=== PATIENT | female | born 1935 | race Caucasian/White ===

== ENCOUNTER → 2020-08-11 | Outpatient (CLI) | payer OTHER ==
[~2020-08-11] MED LIST: ALEVE220 MG PO; ASA81BEC PO; CALCIUM 600 +1 EA10 PO; DESVENLAFAXINE100 M3 PO; FISH OIL 1,0001 EAC9 PO; HYDROXYZINE PAM50 MG PO; LIPITOR40 MG PO; MIRALAX17 GM PO
[2020-08-11 11:05] LABS: APTT 23.8 Seconds (25.0-31.3); INR 0.9
--- NOTE | 2020-08-11 15:43 | EKG ---
[place] [address] ELECTROCARDIOGRAM REPORT Name: CURTIS FORD Room: [facility]#: [id number] Admission: 08/11/20 Attend Phys: Javi Meeks DO Discharge: Date of : 39 Date of Service: 08/11/20 1121 Report #: [id number] THIS REPORT FOR: //name// [facility] Test Date: 2020-08-11 Test Time: 11:21:32 Pat Name: CURTIS FORD Department: Room: Gender: F Clinical Project Assistant: : 1935 Requested By: Javi Meeks Order Number: [id number] Reading MD: Cornel Elmore Measurements Intervals [place] Rate: 78 P: 77 IN: 162 QRS: 34 QRSD: 86 T: 56 QT: 424 QTc: 484 Interpretive Statements Sinus rhythm Biatrial enlargement Anteroseptal infarct, age indeterminate No previous ECG available for comparison Electronically Signed On 08-11-2020 15:43:31 PROCEDURES TECH by Cornel Elmore [email or web address] <ELECTRONICALLY SIGNED> By: Marybel Elmore MD, [facility] 08/11/20 1543 112 112 Marybel Elmore MD, [facility] /EPI
== END ==
LOC: M.LAB → M.CRD 10:36 → M.LAB 14:56
PROVIDERS: ATTEND Orthopaedic Surgery
DX: Z01.812 Encounter for preprocedural laboratory examination (principal); Z20.828 Contact with and (suspected) exposure to other viral communicable diseases; M17.11 Unilateral primary osteoarthritis, right knee; I49.9 Cardiac arrhythmia, unspecified; I51.7 Cardiomegaly

== ENCOUNTER 2020-08-17 05:19 | Inpatient (IN) | payer OTHER ==
[~2020-08-17] VITALS: Ht 152.4 cm; Wt 62.1 kg
--- NOTE | ~2020-08-17 | OP ---
[address] [address] OPERATIVE REPORT Name: CURTIS FORD Room: [address]RAilin#: [id number] Admission: 08/17/20 Attend Phys: Richelle Friedman Discharge: Date of : 39 Report #: [id number] THIS REPORT FOR: //name// cc: Margy Choudhury MD, Sarah Beth MD ~ CC: Javi Montelongo DICTATED BY: Gabriel Villanueva DO DATE OF SERVICE: 08/17/2020 PREOPERATIVE DIAGNOSIS: Left knee degenerative joint disease. POSTOPERATIVE DIAGNOSIS: Left knee degenerative joint disease. PROCEDURE: Left total knee arthroplasty. IMPLANTS: Biomet Vanguard total knee system with the following components: 1. 62.5 femur. 2. 67 tibia. 3. 31 patella oval. 4. Two bags of Biomet cement. 5. Size 12 anterior stabilized tibial bearing. SURGEON: Javi Meeks DO SECOND ASSISTANTS: 1. Ludy Wagner PA-C. 2. Gabriel Villanueva DO ANESTHESIA: Spinal and local. FLUIDS: Crystalloid per Anesthesia. ESTIMATED BLOOD LOSS: 175 mL. DRAINS: None. SPECIMENS: None. COMPLICATIONS: None. CONDITION: Stable to PACU. [address] [address] OPERATIVE REPORT Name: CURTIS FORD Room: [address]#: [id number] Admission: 08/17/20 Attend Phys: Richelle Friedman Discharge: Date of : 39 Report #: [id number] DISPOSITION: Recovery in PACU and transfer to the floor. ANTIBIOTICS: 2 grams Ancef IV preop. TOURNIQUET: None. INDICATIONS FOR PROCEDURE: The patient is a very pleasant 84-year-old female who presented to our clinic with left knee pain. Clinical and radiographic findings were consistent with severe degenerative joint disease. She failed conservative managements and had symptoms that were significantly affecting her activities of daily living. We discussed total knee arthroplasty. The risks, benefits, alternatives and possible complications were discussed at length and she was agreeable to proceed. INTRAOPERATIVE FINDINGS: Upon capsulotomy, there was found to be severe tricompartmental degenerative changes, especially of the medial compartment with full thickness cartilage loss and [id number] articulation. Synovial fluid was otherwise normal. DESCRIPTION OF PROCEDURE: The patient was met in the preoperative area. The correct site was marked. She was transferred to the operative suite. She was given benefit of a spinal anesthetic by the anesthesia team. She was then placed supine on the operative table. She was secured to the table. The left lower extremity was then sterilely prepped and draped after we had applied a well-padded nonsterile tourniquet that was not used for the duration of the case. A timeout was performed to identify the correct patient, procedure and operative site. All in the room were in agreement. She received 2 grams of Ancef IV prior to the incision. She also got 1 gram of TXA prior to start as well. The procedure began with an anterior midline incision in standard fashion with sharp dissection carried down to the level of the capsule. A new knife was used to make a medial parapatellar arthrotomy in standard fashion. We then everted the patella and hyperflexed the knee. The fat pad was then debrided. We used the drill for access to the intramedullary canal of the femur. We then placed the intramedullary cutting guide placed in 5 degrees of valgus. The cutting block was pinned into place. The intramedullary darcie was then removed. We then made our distal femur cut in standard fashion. The distal femoral cutting block was then removed. We turned our attention to the proximal tibia where the extramedullary tibial guide was placed with 3 degrees of posterior slope that will pin. We measured 10 off the high lateral side using the depth stylus. The cutting block was then secured into place with pins. We then made the proximal tibial cut using Hohmann to protect our collateral ligaments. We then used a 10 spacer block to verify equal gaps in full extension. This was confirmed. We then used the AP sizer to size the femur to the appropriate size. The cutting block was then pinned into place and anterior, posterior and chamfer cuts were then made. We placed the trial tibia and secured this in place. We then applied the trial femur. We trialed a size 10 trial spacer, [place] [address] OPERATIVE REPORT Name: CURTIS FORD Room: [address] Cheryle Gay#: [id number] Admission: 08/17/20 Attend Phys: Richelle Friedman Discharge: Date of : 39 Report #: [id number] which was found to have good equal and balanced gaps with full extension and flexion. We then turned our attention to the patella which was cut in freehand fashion. This was sized to a size 31. The peg holes were then drilled. The trial patella poly was then placed and found to track well throughout range of motion. The trial patella and trial poly were removed. We used the drill to drill the femoral peg holes. The trial femur was then removed. We then used the guide for the reamer and punch for the tibia. All trial components were then removed. The bony ends were thoroughly irrigated. Cement was mixed on the back table and final components were thrown on to the back table. Cement was then placed on the backside of all final components as well as the bony ends. We first malleted the final tibia in place followed by the femur. The final patellar button was applied. We then trialed a size 12 poly, which had good range of motion, which was found to be full extension and flexion with good flexion and extension gaps which were balanced and equal. The trial was then removed and a final 12 anterior stabilized poly was placed. The locking bar was placed and secured with a palpable and audible click. All excess cement was removed. We injected a local pain cocktail throughout the capsule and periosteum. The wound was thoroughly irrigated. We then placed 1 gram of powdered vancomycin into the wound. The knee was then placed in 90 degrees of flexion and the capsule was closed with 0 Vicryl in pzkyoo-lh-xpbdi fashion followed by a running #1 Stratafix Quill suture. We then reapproximated the dermal tissue with 2-0 Monocryl suture in simple interrupted inverted fashion followed by running 3-0 Stratafix subcuticular with glue on the skin and a sterile Mepilex dressing. The patient tolerated the procedure well without any complications. All needle and sponge counts were correct x 2 at the end of the case. She was transferred to the PACU in stable condition. Dr. Meeks was present and scrubbed throughout all critical aspects of the case. By: 1933 DO adam Snider
[2020-08-17 13:40] VITALS: BP 165/80
[2020-08-17 21:18] VITALS: BP 119/62
[2020-08-17 22:30] VITALS: BP 135/61
--- NOTE | 2020-08-17 22:30 | NUR ---
ASSUMED CARE FROM PACU , PT ALERT ORIENTED X4 DATA BASE AND ASSESSMENT COMPLETED , BUPIVACAINE PUMP INTACT , PT CONTIUE TO RATE PAIN AT 7 , PO MEDICATION GIVEN. VSS , DISCUSSED POC, PT VERBALIZED UNDERSTANDING. LEFT KNEE FREE OF DRAINAGE OR ACTIVE BLEEDING.
[2020-08-18 00:08] VITALS: BP 133/69
[2020-08-18 04:36] LABS: HEMATOCRIT 37.4 % (37.0-47.0); HEMOGLOBIN 12.8 gm/dL (12.0-15.0)
[2020-08-18 07:30] VITALS: BP 141/83
[2020-08-18] MEDS ORDERED: ELIQUIS5 MG PO (10:46)
--- NOTE | 2020-08-18 12:47 | NUR ---
Pt is A&O. Resides at home alone. Normally active and independent. Pt has a walker and cane at home, does not normally use either. No home o2. No hx of HH or SNF. Goal is home at dc, Pt's dtr plans to stay with Pt at dc. CM faxed referral and dc orders to [facility] [phone], f:[phone]. [facility] to call in Pt's prescription for Eliquis. Plan dc home today post working with PT.
[2020-08-18 13:03] VITALS: BP 141/83
--- NOTE | 2020-08-18 14:05 | NUR ---
CM CALLED IN PRESCRIPTION EARLIER FOR ELIQUIS, WRITTEN,TO [facility] IN [place]. COPAY IS $12.32. PT.INFORMED.
[2020-08-18 15:00] VITALS: BP 141/83
--- NOTE | 2020-08-18 16:00 | NUR ---
PATIENT PARTICIPATED IN THERAPIES. UP WITH SBA GAIT BELT AND WALKER. IV ABX COMPLETE ORDERED. OXY IR GIVEN X 2 FOR PAIN. PATIENT OK TO DISCHARGE HOME. VERBALIZES UNDERSTANDING OF PAPERWORK AND SCRIPTS. PATIENT TAKEN OUT VIA WHEELCHAIR WITH ALL BELONGINGS.
--- NOTE | 2020-08-18 16:00 | NUR ---
FAXED FACE SHEET AND ORTHO ORDERS FOR OUTPT.THERAPY TO [facility] [phone]. PT.S DAUGHTER SAID HER MOM HAD AN APPT.TOMORROW WITH THEM SET UP.
[2020-08-18 16:01] VITALS: BP 141/83
--- NOTE | 2020-08-18 17:56 | NUR ---
LATE ENTRY-RECIEVED O.T. ORDERS. WILL DEFER TO P.T. AT THIS TIME. PLEASE ORDER FURTHER O.T. SERVICES IF NEEDED.
== END 2020-08-18 16:02 | disposition home or self-care (01) | DRG 470 ==
LOC: M.ORTHSURG 05:19 → M.TBA 13:00 → M.ORTHSURG 13:19 → M.3W 19:19
PROVIDERS: Orthopaedic Surgery; ADMIT Internal Medicine; ATTEND Internal Medicine
DX: M17.12 Unilateral primary osteoarthritis, left knee (principal); I10 Essential (primary) hypertension; F41.9 Anxiety disorder, unspecified; E78.00 Pure hypercholesterolemia, unspecified; Z96.1 Presence of intraocular lens; Z88.8 Allergy status to other drugs, medicaments and biological substances; Z79.82 Long term (current) use of aspirin; Z79.899 Other long term (current) drug therapy; Z98.42 Cataract extraction status, left eye; Z98.41 Cataract extraction status, right eye

== ENCOUNTER → 2020-10-14 | Outpatient (CLI) | payer OTHER ==
[~2020-10-14] MED LIST changes: +ASPIRIN325 PO; +COLACE100 MG PO; +ELIQUIS5 MG PO; +NEURONTIN 300M300 M2 PO; +OXYCODONE HCL 55 MG PO
[2020-10-14 12:23] LABS: ABSOLUTE BASOPHILS 0.1 thou/uL (0.0-0.2); ABSOLUTE EOSINOPHILS 0.1 thou/uL (0.0-0.7); ABSOLUTE LYMPHOCYTES 1.4 thou/uL (0.8-5.3); ABSOLUTE MONOCYTES 0.6 thou/uL (0.0-1.2); ABSOLUTE NEUTROPHILS 5.8 thou/uL (1.6-8.1); BASOPHILS 0.8 %; EOSINOPHILS 1.3 %; HEMATOCRIT 43.2 % (37.0-47.0); HEMOGLOBIN 14.4 gm/dL (12.0-15.0); LYMPHOCYTES 17.5 %; MCH 28.6 pg (26.0-34.0); MCHC 33.3 g/dL (28.0-37.0); MCV 85.8 fL (80.0-100.0); MONOCYTES 7.6 %; MPV 8.4 fl. (7.2-11.1); NUCLEATED RBCS 0 /100WBC; PLATELET COUNT* 246 thou/uL (150-400); POLYS 72.8 %; RBC 5.03 mil/uL (4.20-5.00); RDW-CV 14.2 % (10.5-14.5)
[2020-10-14 12:34] LABS: APTT 22.9 Seconds (25.0-31.3); INR 0.9; PROTIME 10.1 Seconds (9.20-11.50)
[2020-10-14 12:42] LABS: ALBUMIN 3.7 g/dL (3.4-5.0); CREATININE 1.1 mg/dL (0.6-1.3); POTASSIUM 3.6 mmol/L (3.5-5.1); TOTAL BILIRUBIN 0.4 mg/dL (<0.1-1.0)
[2020-10-14 13:44] LABS: ESR (SEDRATE) 1 mm/hr (0-30)
== END ==
LOC: M.LAB 10:28
PROVIDERS: ATTEND Orthopaedic Surgery
DX: Z01.812 Encounter for preprocedural laboratory examination (principal); Z20.822 Contact with and (suspected) exposure to COVID-19; M17.11 Unilateral primary osteoarthritis, right knee

== ENCOUNTER 2020-10-19 07:55 | Observation (INO) | payer OTHER ==
[~2020-10-19] VITALS: Ht 167.6 cm; Wt 62.6 kg
--- NOTE | ~2020-10-19 | OP ---
[address] [address] OPERATIVE REPORT Name: CURTIS FORD Room: [address] M.RAilin#: [id number] Admission: 10/19/20 Attend Phys: Richelle Friedman Discharge: Date of : 39 Report #: [id number] THIS REPORT FOR: cc: Margy Choudhury MD, Sarah Beth MD ~ Javi Meeks DO DICTATED BY: Joselyn Meeks DO DATE OF SERVICE: 10/19/2020 PREOPERATIVE DIAGNOSIS: Right knee degenerative joint disease. POSTOPERATIVE DIAGNOSIS: Right knee degenerative joint disease. SURGEON: Javi Meeks DO ANTIQUE FINISHER: Ludy Wagner PA-C.; Joselyn Meeks DO; , DO IMPLANTS: Biomet Vanguard knee system: 1. Cruciate retained femur, 62.5. 2. Tibial plate 67. 3. Patella 31 mm. 4. tibial bearing 16 mm. OPERATION PERFORMED: Right total knee arthroplasty. ANESTHESIA TYPE: Spinal, nerve block by Anesthesia. ESTIMATED BLOOD LOSS: 170 mL. SPECIMENS REMOVED: None. COMPLICATIONS: None. REASON FOR PROCEDURE: The patient has been a pleasant 85-year-old female who has been followed closely in clinic. She has had bilateral knee pain for numerous years. She recently had her left knee replaced in July and had a good recovery from that. She has failed conservative management in the form of injections, weight loss and physical therapy. She is now wanting to have her right knee replaced. DESCRIPTION OF PROCEDURE: The patient was met in the preoperative suite. Her right knee was marked and the patient agreed that this was the correct operative site. She was then brought back to the operative suite. She was given a spinal nerve block by Anesthesia, and then given correct sedation. [place] [address] OPERATIVE REPORT Name: CURTIS FORD Room: [address]#: [id number] Admission: 10/19/20 Attend Phys: Richelle Friedman Discharge: Date of : 39 Report #: [id number] then draped and prepped in the standard sterile fashion. A timeout was performed indicating the correct procedure, patient and allergies. Then, a 15 blade scalpel was then utilized to make the first incision. A 10 blade scalpel was used as a deep knife to rei the patella. The soft tissue flaps were then made in the standard way. The lateral meniscus was cut in order to open up to the patella. The patellar fat pad was then removed. The knee was then able to be flipped. The femur was then cut. Next, the tibia was then measured. The tibial bearing was measuring to be 67 mm. All osteophytes were removed from around the tibia. The attention was then brought back to the femur. The femur was measured to be 62.5 mm matching her left side. The 4-in-1 chamfer cuts were then made. A 10 block spacer was able to be placed and noted some laxity with 90-degree flexion. Attention was then brought to the patella, which was then cut freehand and measured to be ____ . The peg holes were then made. Patellar tracking was accurate and correct with flexion and extension. Next, the knee was then brought back into flexion and the femur holes were drilled. The poly was removed and the tibial holes were then drilled as well. Final implants were pulled for the femur, which was a 62.5, a tibial plate 67, and a patella, which was 31 mm. One bag of cement was utilized. The patient was given the pain cocktail and the bone was then cleansed utilizing the saline. The tibia was cemented. Next, attention was brought to the femur, which was also cemented and the patella. A 14 poly was put into place while the cement was hardening. Full extension was obtained as well as flexion, stability at 90 degrees with an anterior and posterior drawer with good patellar tracking. The 14 poly was then pulled and inserted. The patient had good flexion, extension and stability throughout range of motion. The incision was then cleansed a final time and 1 g of vancomycin powder was utilized in the wound. The incision was then closed with 1-0 Vicryl as well as Stratafix and the top layer skin was closed with 2-0 ____ and Stratafix. The patient will be admitted for observation. By: [id number] Meeks DO /tish
[~2020-10-19 07:55] MED LIST changes: -ASPIRIN325 PO; -COLACE100 MG PO; -OXYCODONE HCL 55 MG PO
[2020-10-19 11:00] VITALS: BP 133/76
[2020-10-19 20:00] VITALS: BP 132/74
[2020-10-20] VITALS (9 sets, daily range): BP systolic 130–155; BP diastolic 69–77
[2020-10-20 05:04] LABS: HEMOGLOBIN 11.1 gm/dL (12.0-15.0)
[2020-10-20] MEDS ORDERED: OXYCODONE HCL 55 MG PO (09:14)
[2020-10-20] MEDS ORDERED: COLACE100 MG PO (09:14)
[2020-10-20] MEDS ORDERED: ELIQUIS5 MG PO (09:14)
[2020-10-20] MEDS ORDERED: ASPIRIN325 PO (10:22)
== END 2020-10-20 14:20 | disposition home or self-care (01) ==
LOC: M.PRE 07:55 → M.TBA 09:26 → M.3W 09:26 → M.TBA 09:26 → M.PRE 11:12 → M.3W 16:54
PROVIDERS: Orthopaedic Surgery; ADMIT Internal Medicine; ATTEND Internal Medicine
DX: M17.11 Unilateral primary osteoarthritis, right knee (principal); E78.00 Pure hypercholesterolemia, unspecified; F41.1 Generalized anxiety disorder; Z79.82 Long term (current) use of aspirin; Z79.899 Other long term (current) drug therapy